=== PATIENT | female | born 1960 | race Caucasian/White ===

== ENCOUNTER 2022-09-10 01:23 | Day surgery (SDC) | payer OTHER, SELFPAY ==
[2022-08-30 12:02] VITALS: BMI 23.0
--- NOTE | 2022-08-30 12:07 | PC.NURSE ---
Report to the Outpatient Waiting Room, entrance under the green pavilion located off [facility], at time 1200 on date 09/10/22. Planned Procedure Time: 1400. Time changes happen often and if your time is changed the preop area will call you the afternoon before. - You and your visitor will be asked to self-screen and do not enter if you have any COVID symptoms. - Only one visitor is requested with a max of two and NO children visitors are allowed at this time. - The patient visitor may be requested to leave or wait in car when not with patient due to distancing restrictions. - A mask is optional within the hospital at this time. Patients may have clear liquids (water, carbonated beverages, clear teas, apple juice) until 3 hours prior to surgery with a maximum of 20 ounces. - No food from midnight until time of surgery Take the following medications with a SIP of water the morning of surgery: NONE DO NOT STOP ANY OF YOUR OTHER PRESCRIPTION MEDICATIONS PRIOR TO SURGERY EXCEPT THE FOLLOWING Medications to discontinue per physician: VITAMINS/SUPPLEMENTS Date to take last dose: 09/06/22 Please no make-up, nail icelandic, hairspray, perfume, deodorant, or body powder the day of surgery. No jewelry (including any body piercings) or valuables the day of surgery, leave them at home. Please take a shower or bath the night before, or the morning of, surgery with an antibacterial soap. Wear comfortable, loose fitting clothing. - Jewelry must be removed prior to entering the operating room. Rings and piercings that are not removed may be cut off. - The hospital will not accept responsibility for valuables. - Please leave all valuables, including medications, at home the day of surgery. If you are going home after surgery, a licensed hazmat cdl driver must drive you home. - NO public transportation without another adult if you receive anesthesia. - We recommend that an adult stay with you for 24 hours following discharge. - We also recommend that you do not drive, make important decision, drink alcoholic beverages, or take any drugs that were not prescribed by your health care provider for at least 24 hours after your discharge time. Follow any additional instructions given to you from your surgeon. If you or anyone in your household have experienced Covid symptoms in the past week, please notify your surgeon or the nurse liaison at the phone number below for possible testing. Telephone instructions given to MARCIA - YOON DAVID and asked if any additional questions and then verbalized understanding. Patient advised to call surgeon office or pre surgery nurse liaison [phone] if any additional questions.
[2022-09-10] VITALS (8 sets, daily range): BP systolic 120–139; BP diastolic 70–92; PULSE 57–95; RESP 14–19; TEMP 36.4–37.1; O2SAT 97–100
[2022-09-10] MEDS: LACTATED RINGERS 1,000 ML 30 ML IV CONT ×2 (13:34→16:39)
--- NOTE | 2022-09-10 14:00 | WPDHPUPDATE1 ---
History and Physical Update Update Date/Time: 09/10/22 14:00 History and Physical has been reviewed, including an updated exam of the patient. There are NO changes in the patient's condition. Risks, benefits, and alternatives have been discussed and questions answered. Patient agrees to proceed with procedure.
--- NOTE | 2022-09-10 14:02 | W.PM.PROC2 ---
Procedure Note - Detailed Date of Procedure 09/10/22 Pre-op Diagnosis history of breast augmentation Post-op Diagnosis Same Procedure Performed Bilateral breast implant exchange with capsulectomy Surgeon David Vilal MD Anesthesia General Findings Previous implants: Textured 325cc saline bilateral Subglandular New implants: Bilateral Natrelle Saline 360cc filled to 390cc Subglandular Right - REF# [id number] SN [id number] Left - REF# [id number] SN [id number] Capsules: Right breast intracapsular hematoma. Bilteral total capsulectomy Description of Procedure Preoperatively the risks, benefits, alternatives were discussed in extensive detail. I wanted to be very realistic about the risks involved as well as expectations. We again discussed her ultrasound findings and options. I was clear about how we could actually make her worse. Answered all questions to satisfaction. Voiced a clear understanding. Consent obtained. She was taken the operating room placed supine on the operating room table. Anesthesia provided by anesthesiology and prepped and draped in a standard sterile fashion. Surgical time-out was taken. 1% lidocaine and 0.25% Marcaine with epinephrine was used to provide a field block. Tegaderm nipple hernandez were placed. Fifteen blade used to excise the previous IMF scars. Dissection was continued down until the capsules were identified and excised bilateral capsules which was sent to pathology. I then copiously irrigated with 3 L of saline solution on TUR tubing. Verified strict hemostasis. I then irrigated with Betadine containing solution. Using a no-touch technique and a Caballero funnel the implant was introduced into the pocket. This was closed with 2-0 PDS followed by 3-0 Monocryl and a running subcuticular 4-0 Monocryl followed by tissue glue. Dressings were placed. She was woken taken to the PACU without difficulty. All instrument sponge counts were correct at the end of the case. Estimated Blood Loss 150 Drains No Packing No Pathology Yes (Bilateral breast implant capsules) Complications No immediate complications Condition Stable Disposition PACU
--- NOTE | 2022-09-10 14:03 | P.PNAN_ITS ---
Anes - Initial Pre Proc Eval Procedure: Operation Date: 09/10/22 14:00 Proposed Procedures p Bilateral Breast Implant Exchange with Capsulectomy - David Villa MD Date/Time: 09/10/22 14:03 Surgeon: David Villa MD Pre Op Diagnosis: history of breast augmentation Patient Data Age: 61 Gender: F Height: 1.6 m Weight: 59 kg Allergies Allergy/AdvReac Type Severity Reaction Status Date / Time erythromycin base Allergy Mild ABDOMINAL Verified 08/30/22 12:01 PAIN Home Medications Medication Instructions Recorded Confirmed Type Lactobacillus 25 billion 1 cap PO DAILY 08/30/22 08/30/22 History cell-Bifido 25 billion [id number] capsule (Women's Probiotic) lansoprazole 30 mg capsule,delayed 30 mg PO DAILY 08/30/22 08/30/22 History release (Prevacid) lysine 1,000 mg tablet 1,000 mg PO DAILY 08/30/22 08/30/22 History multivitamin 1 tablet PO DAILY 08/30/22 08/30/22 History Patient hx anesthesia problems: none Family hx anesthesia problems: none Results Review: All pre-operative results and documents have been reviewed as part of the pre- operative evaluation. [facility] Social History Social History Smoking packs per day: 0.5 Smoking cigarettes per day: 10.0 Years smoked: 30 Smoking pack-years: 15.00 Smoking status: Current every day smoker Tobacco type: cigarettes Alcohol intake: current Drinks per week: 6 Substance use: never Substance use type: does not use Living arrangements: alone Spiritual care concerns: No Anes - Eval Final PreProcedure Day of Procedure 09/10/22 14:03 Patient weight: normal Heart: regular rate and rhythm Lungs: clear to auscultation Airway: Mallampati scale class II Neurological: alert and oriented Last oral intake: >/= 8 hours ASA classification: II Emergent: no Anesthetic plan: proceed Anesthesia type and monitoring: general LMA and standard monitoring Results Review: All pre-operative results and documents have been reviewed as part of the pre- operative evaluation. Informed Consent: The patient's anesthetic plan and its attendant risks and benefits were discussed with the patient/family/POA. Questions were solicited and answers provided to the satisfaction of the patient/family/POA.
[2022-09-10] MEDS: SCOPOLAMINE 1.5 MG PATCH TRANSDERM (14:09)
[2022-09-10] MEDS: ceFAZolin 2 GM/D5W 50 ML 2 GM/50 ML BAG IVPB (14:21)
[2022-09-10] MEDS: NACL 0.9% IRRIG POUR BOTTLE 900 ML, GENTAMICIN SULFATE INJ 160 MG, ceFAZolin 2 GM, POVI... IRRIGATION (14:21)
[2022-09-10] MEDS: BUPivacaine HCL 0.25% PF 10 ML VIAL INFILTRATE (14:25)
[2022-09-10] MEDS: LIDO 1%/EPINEPHRINE 1:100,000 20 ML VIAL 30 ML INFILTRATE (14:25)
[2022-09-10] MEDS: HYDROmorphone HCL INJ (*CRX) 1 MG/ML SYR 0.5 MG IV PUSH ×3 (17:00→17:24)
[2022-09-10] MEDS: oxyCODONE HCL (*CRX) 5 MG TAB IR PO (17:46)
== END 2022-09-10 18:25 | disposition home or self-care (01) ==
PROVIDERS: PCP Internal Medicine; Visit Provider Surgery Plastic and Reconstructive Surgery
PROC: (CPT 19342; principal; 2022-09-10 14:00)
DX: Z45.812 Encounter for adjustment or removal of left breast implant (principal); Z45.811 Encounter for adjustment or removal of right breast implant
CPT/HCPCS: 19371; 19342; 88304; A9270; J0690; J1100; J1170; J1580; J2250; J2405; J2704; J3010; J7030; J7120